=== PATIENT | female | born 1960 | race Caucasian/White ===

== ENCOUNTER → 2017-03-22 | Outpatient (CLI) | payer MEDICAID ==
--- NOTE | 2017-03-22 17:05 | WOMENS IMAGING REPORT ---
EXAM DESCRIPTION: BILAT SCREENING MAMMO W/CAD COMPLETED DATE/TIME: 03/22/2017 11:29 am REASON FOR STUDY: ROUTINE SCREENING; Z12.31 Z12.31 ENCNTR SCREEN MAMMOGRAM FOR MALIGNANT NEOPLASM O F GELY COMPARISON: No previous available, old mammograms are 30 years old TECHNIQUE: Standard craniocaudal and mediolateral oblique views of each breast recorded using digita l acquisition. LIMITATIONS: None. FINDINGS: No masses, calcifications or architectural distortion. No areas of suspicion. Read with the assistance of CAD. .[facility] - R2 Cenova Version 1.3 .[facility] - R2 Cenova Version 1.3 .[facility] - R2 Cenova Version 2.4 .[facility] - R2 Cenova Version 2.4 .[facility] - R2 Almond Roaster Version 9.2 IMPRESSION: NORMAL MAMMOGRAM. BIRADS 1. BREAST DENSITY: b. There are scattered areas of fibroglandular density. BIRAD: 1 NEGATIVE RECOMMENDATION: ROUTINE SCREENING Please consider bilateral screening tomosynthesis in February 2018 COMMENT: The patient has been notified of the results by letter per SA requirements. Additional no tification policies are in place for contacting patient with suspicious or incomplete findings. Quality ID #[id number]: The [employer] recommends an annual screening mammogram for women aged 40 years or over. This facility utilizes a reminder system to ensure that all patients receive reminder letters, and/or direct phone calls for appointments. This includes reminders for routine scr eening mammograms, diagnostic mammograms, or other Breast Imaging Interventions when appropriate. Th is patient will be placed in the appropriate reminder system. The [employer] (ACR) has developed recommendations for screening MRI of the breast s in certain patient populations, to be used in conjunction with mammography. Breast MRI surveillanc e may be appropriate for women with more than 20% lifetime risk of developing breast cancer as deter mined by genetic testing, significant family history of the disease, or history of mantle radiation f or Hodgkins Disease. ACR Practice Guidelines 2008. TECHNICAL DOCUMENTATION: FINDING NUMBER: (1) ASSESSMENT: (1) JOB ID: [id number] [employer]- All Rights Reserved
== END ==
LOC: WI 11:04
PROVIDERS: ATTEND Internal Medicine
DX: Z12.31 Encounter for screening mammogram for malignant neoplasm of breast (principal)
CPT/HCPCS: 77067

== ENCOUNTER 2017-05-26 10:35 | Inpatient (IN) | payer MEDICAID ==
--- NOTE | 2017-05-26 11:00 | RADIOLOGY REPORT (SQ) ---
EXAM DESCRIPTION: CHEST 2 VIEWS COMPLETED DATE/TIME: 05/26/2017 10:50 am REASON FOR STUDY: difficulty breathing COMPARISON: None. EXAM PARAMETERS: NUMBER OF VIEWS: two views TECHNIQUE: Digital Frontal and Lateral radiographic views of the chest acquired. RADIATION DOSE: NA LIMITATIONS: none FINDINGS: LUNGS AND PLEURA: No opacities, masses or pneumothorax. No pleural effusion. MEDIASTINUM AND HILAR STRUCTURES: No masses or contour abnormalities. HEART AND VASCULAR STRUCTURES: Heart normal size. No evidence for failure. BONES: No acute findings. HARDWARE: None in the chest. OTHER: No other significant finding. IMPRESSION: NO ACUTE RADIOGRAPHIC FINDING IN THE CHEST. TECHNICAL DOCUMENTATION: JOB ID: [id number] [employer]- All Rights Reserved Reading location - IP/workstation name: [email or web address]
[2017-05-26] MEDS ORDERED: IPRATROPIUM/ALBUTEROL 0.5-2.5 MG/3 ML AMPUL NEB ONE (11:02)
[2017-05-26] MEDS ORDERED: ONDANSETRON HCL INJ/PF 4 MG/2 ML SDV IV ONE (11:03)
[2017-05-26] MEDS ORDERED: MORPHINE SULFATE 10 MG/ML INJ IV ONE (11:03)
[2017-05-26] MEDS ORDERED: ASPIRIN 81 MG TABLET, CHEWABLE PO ONE (11:03)
[2017-05-26] MEDS ORDERED: NORMAL SALINE 1000 ML 1,000 ML IV ONE (11:04)
[2017-05-26 11:30] LABS: ABSOLUTE EOSINOPHILS # (AUTO) 0.1 10^3/uL (0.0-0.6); ABSOLUTE LYMPHOCYTES (AUTO) 2.2 10^3/uL (0.5-4.7); ABSOLUTE MONOCYTES (AUTO) 0.7 10^3/uL (0.1-1.4); ABSOLUTE NEUT (AUTO) 2.5 10^3/uL (1.7-8.2); BASOPHILS % (AUTO) 0.8 % (0-2); EOSINOPHILS % (AUTO) 0.9 % (0-6); HEMATOCRIT 45.7 % (36.0-47.0); HEMOGLOBIN 15.9 g/dL (12.0-15.5); LYMPHOCYTES % (AUTO) 40.2 % (13-45); MEAN CORPUSCULAR HEMOGLOBIN 30.7 pg (27.0-33.4); MEAN CORPUSCULAR HGB CONC 34.7 g/dL (32.0-36.0); MEAN CORPUSCULAR VOLUME 88 fl (80-97); MONOCYTES % (AUTO) 12.4 % (3-13); PLATELET COUNT 222 10^3/uL (150-450); RED BLOOD COUNT 5.17 10^6/uL (3.72-5.28); RED CELL DISTRIBUTION WIDTH 13.2 % (11.5-14.0); SEGMENTED NEUTROPHILS % (AUTO) 45.7 % (42-78); TOTAL CELLS COUNTED % (AUTO) 100 %; WHITE BLOOD COUNT 5.6 10^3/uL (4.0-10.5)
[2017-05-26 11:32] LABS: VENOUS BLOOD BASE EXCESS 1.7 mmol/L; VENOUS BLOOD PCO2 39.7 mmHg (35-63); VENOUS BLOOD PH 7.43 (7.30-7.42)
[2017-05-26 11:54] LABS: ALANINE AMINOTRANSFERASE 66 U/L (9-52); ALKALINE PHOSPHATASE 59 U/L (38-126); ANION GAP 9 (5-19); ASPARTATE AMINO TRANSFERASE 82 U/L (14-36); BILIRUBIN,DIRECT 0.4 mg/dL (0.0-0.4); BILIRUBIN,TOTAL 0.7 mg/dL (0.2-1.3); BLOOD UREA NITROGEN 5 mg/dL (7-20); CALCIUM 8.7 mg/dL (8.4-10.2); CARBON DIOXIDE 29 mmol/L (22-30); CHLORIDE 99 mmol/L (98-107); CREATINE KINASE 396 U/L (30-135); GLUCOSE 105 mg/dL (75-110); POTASSIUM 3.5 mmol/L (3.6-5.0); SODIUM 136.9 mmol/L (137-145); TOTAL PROTEIN 6.7 g/dL (6.3-8.2)
[2017-05-26 12:04] LABS: CREATINE KINASE MB 2.47 ng/mL (<4.55); NT PRO BNP 145 pg/mL (5-900)
[2017-05-26 12:05] LABS: TROPONIN I < 0.012 ng/mL
--- NOTE | 2017-05-26 13:17 | RADIOLOGY REPORT (SQ) ---
EXAM DESCRIPTION: CTA CHEST COMPLETED DATE/TIME: 05/26/2017 12:53 pm REASON FOR STUDY: sob, tachycardia, left sided cp COMPARISON: None. TECHNIQUE: CT scan of the chest performed using helical scanning technique with dynamic intravenous contrast injection. Images reviewed with lung, soft tissue and bone windows. Reconstructed coronal and sagittal MPR images reviewed. Additional 3 dimensional post-processing performed to develop Maximal Intensity Projection images (TN P). All images stored on PACS. All CT scanners at this facility use dose modulation, iterative reconstruction, and/or weight based d osing when appropriate to reduce radiation dose to as low as reasonably achievable (ALARA). [facility]: Dose Right [facility]: CareDose [facility]: Dose Right [facility]: Teradose 4D [facility]: Neurologix CONTRAST TYPE AND DOSE: contrast/concentration: Isovue 370.00 mg/ml; Total Contrast Delivered: 69.0 ml; Total Saline Delivered: 80.0 ml Contrast bolus optimized for the pulmonary arteries. Not diagnostic for the aorta. RENAL FUNCTION: BUN 5 creatinine 0.47 RADIATION DOSE: CT Rad equipment meets quality standard of care and radiation dose reduction techniq ues were employed. CTDIvol: 16.5 - 18.4 mGy. DLP: 757 mGy-cm. . LIMITATIONS: None. FINDINGS: LUNGS AND PLEURA: Scattered faintly defined ground-glass infiltrates in the right upper lo be. No pneumothorax. No effusion. There is a 5 mm ground-glass nodule adjacent to the fissure on t he left on image 39. AORTA AND GREAT VESSELS: No aneurysm. Contrast bolus not optimized for the aorta. HEART: No pericardial effusion. No significant coronary artery calcifications. PULMONARY ARTERIES: No emboli visualized in the main pulmonary arteries or the segmental branches. HILAR AND MEDIASTINAL STRUCTURES: No identified masses or abnormal nodes. HARDWARE: None in the chest. UPPER ABDOMEN: No significant findings. Limited exam. THYROID AND OTHER SOFT TISSUES: No masses. No adenopathy. BONES: Thoracic spondylosis. No acute findings. 3D MIPS: Confirm above findings. OTHER: No other significant finding. IMPRESSION: 1. There is no evidence of pulmonary emboli. 2. Scattered ground-glass infiltrates in the right upper lobe, likely chronic interstitial changes. Acute infection/inflammation cannot be excluded. 3. 5 mm ground-glass nodule in the left lung. 4. Thoracic spondylosis. COMMENT: Fleischner Criteria for Ground Glass Nodules: <6mm ground glass single nodule: No routine followup Quality ID # [id number]: Final reports with documentation of one or more dose reduction techniques (e.g., Au tomated exposure control, adjustment of the mA and/or kV according to patient size, use of iterative reconstruction technique) TECHNICAL DOCUMENTATION: JOB ID: [id number] [employer]- All Rights Reserved Reading location - IP/workstation name: [email or web address]
[2017-05-26] MEDS ORDERED: AZITHROMYCIN INJ 500 MG VIAL IV ONE (15:18)
[2017-05-26] MEDS ORDERED: CEFTRIAXONE INJ 1000 MG VIAL IV ONE (15:18)
[2017-05-26] MEDS ORDERED: ACETAMINOPHEN WITH CODEINE 120-12 MG/5 ML UDCUP PO ONE (15:19)
--- NOTE | 2017-05-26 15:30 | ER Document Report ---
ED Respiratory Problem - General Chief Complaint: Shortness Of Breath Stated Complaint: BREATHING DIFFICULTIES Time Seen by Provider: 05/26/17 10:54 Mode of Arrival: Ambulatory Information source: Patient Notes: Patient is a 57-year-old female who presents to the ER today for shortness of breath, productive cough over the past week. Patient has no history of asthma or COPD, has not been able to eat over the past day or drink any fluids she states because of nausea and vomiting. She denies any diarrhea or abdominal pain. Patient admits to chills but denies any fever that she knows of. She states that her doctor had given her an inhaler prior to this and so she was using at home without relief. TRAVEL OUTSIDE OF THE [place] IN LAST 30 DAYS: No - Related Data Allergies/Adverse Reactions: No Known Allergies Allergy (Verified 05/26/17 10:41) Past Medical History - General Information source: Patient - Social History Smoking Status: Unknown if Ever Smoked Family History: Reviewed & Not Pertinent Patient has suicidal ideation: No Patient has homicidal ideation: No Renal/ Medical History: Denies: Hx Peritoneal Dialysis Past Surgical History: Reports: Hx Tubal Ligation - Immunizations Hx Diphtheria, Pertussis, Tetanus Vaccination: Yes Review of Systems - Review of Systems Constitutional: See HPI EENT: No symptoms reported Cardiovascular: No symptoms reported Respiratory: See HPI Gastrointestinal: See HPI Genitourinary: No symptoms reported Female Genitourinary: No symptoms reported Musculoskeletal: No symptoms reported Skin: No symptoms reported Hematologic/Lymphatic: No symptoms reported Neurological/Psychological: No symptoms reported Physical Exam - Vital signs Vitals: Temp Pulse Resp BP Pulse Ox 97.8 F 132 H 20 121/89 H 94 05/26/17 10:42 05/26/17 10:42 05/26/17 10:42 05/26/17 10:42 05/26/17 10:42 - Notes Notes: PHYSICAL EXAMINATION: GENERAL: Mildly ill-appearing, but in no acute distress. HEAD: Atraumatic, normocephalic. EYES: Pupils equal round and reactive to light, extraocular movements intact, sclera anicteric, conjunctiva are normal. ENT: ear canals without erythema or foreign body, TMs pearly friedman with good bony landmarks, nares patent, oropharynx clear without exudates. Moist mucous membranes. NECK: Normal range of motion, supple without lymphadenopathy LUNGS: Cough, otherwise CTAB and equal. No wheezes rales or rhonchi. HEART: Tachycardic with regular rhythm without murmurs ABDOMEN: Soft, no tenderness. No guarding, no rebound BACK: no vertebral tenderness, normal ROM GI/: no CVA tenderness EXTREMITIES: Normal range of motion, no pitting edema. No cyanosis. NEUROLOGICAL: Cranial nerves grossly intact. Normal sensory/motor exams. PSYCH: Normal mood, normal affect. SKIN: Warm, Dry, normal turgor, no rashes or lesions noted Course - Re-evaluation Re-evalutation: 05/26/17 17:43 Chest x-ray negative for any acute pathology, white blood cell count normal today, patient did come in tachycardic at 135 bpm and would become hypoxic on room air down to 87%. Patient did much better after breathing treatment and a liter of fluids, tachycardia did resolve patient's pulse stayed around the 60s and 70s the rest of the ER visit while resting, however patient would become tachycardic when ambulated, of 210 bpm. Patient's pulse ox did keep dropping to 87% on room air, on ambulation 91% on room air. CTA was performed and negative for any pulmonary emboli but does report some groundglass opacities in the right upper lobe and a 5 mm nodule in the left lung. Patient admitted to Dr. Perera, hospitalist at this time. on oxygen, 2L satting at 95%. 05/26/17 17:47 05/26/17 17:48 - Vital Signs Vital signs: Temp Pulse Resp BP Pulse Ox 97.8 F 76 14 123/59 L 99 05/26/17 10:42 05/26/17 16:58 05/26/17 17:01 05/26/17 17:01 05/26/17 17:01 - Laboratory Result Diagrams: 05/26/17 11:12 05/26/17 11:12 Laboratory results interpreted by me: 05/26/17 05/26/17 05/26/17 11:12 11:12 11:12 Hgb 15.9 H VBG pH 7.43 H Sodium 136.9 L Potassium 3.5 L BUN 5 L Creatinine 0.47 L AST 82 H ALT 66 H Creatine Kinase 396 H Discharge - Discharge Clinical Impression: Hypoxia, Lung nodule < 6cm on CT Pneumonia Qualifiers: Pneumonia type: due to unspecified organism Laterality: right Lung location: upper lobe of lung Qualified Code(s): J18.1 - Lobar pneumonia, unspecified organism Condition: Stable Disposition: ADMITTED INPATIENT Admitting Provider: [facility] Unit Admitted: Telemetry
[2017-05-26] MEDS ORDERED: POTASSIUM CHLORIDE 10 MEQ TABLET.SA PO ONE (15:45)
[2017-05-26] MEDS ORDERED: ACETAMINOPHEN 325 MG TABLET PO PRN (16:10)
[2017-05-26] MEDS ORDERED: MAG HYDROX/AL HYDROX/SIMETH SUSP 30 ML UDCUP PO PRN (16:10)
[2017-05-26] MEDS ORDERED: ONDANSETRON HCL INJ/PF 4 MG/2 ML SDV IV PRN (16:10)
[2017-05-26] MEDS ORDERED: MAGNESIUM HYDROXIDE SUSP 30 ML UDCUP PO PRN (16:10)
--- NOTE | 2017-05-26 16:34 | PDOC H&P ---
History of Present Illness Admission Date/PCP: 05/26/17 15:36 Patient complains of: left chest wall pain History of Present Illness: THI TANNER is a 57 year old female with no significant PMH who presented to the ED with pain under her left breast. She reports coughing so vigorously yesterday that she felt/heard a pop under her left breast. As a result, when she coughs or inhales deeply, she experiences pain. A week ago, after donating plasma at [employer], she started coughing. She thought she had a cold. Gradually , she noticed difficulty taking deep breaths. Her symptoms worsened to point of feeling the pop, thus leading to this admission. She has no history of lung or heart disease. She has not travelled out of [place] recently. She does not know of any others with respiratory symptoms. She has no pets at home besides her roommate's pit bull. She is unemployed. She has a 40 pack year history of smoking. Past Medical History Medical History: None Past Surgical History Past Surgical History: Reports: Tubal Ligation Social History Information Source: Patient Lives with: Friend Smoking Status: Current Every Day Smoker - 40 pack year Frequency of Alcohol Use: Occasional Hx Recreational Drug Use: No - Advance Directive Resuscitation Status: Full Code Family History Family History: None - She has not seen or spoken to her parents in 30 years Parental Family History Reviewed: No Children Family History Reviewed: No Sibling(s) Family History Reviewed.: No Medication/Allergy Home Medications: Cyclobenzaprine HCl [Flexeril 10 mg Tablet] 10 mg PO TID 05/26/17 Ibuprofen [Motrin 800 mg Tablet] 800 mg PO TID 05/26/17 Allergies/Adverse Reactions: No Known Allergies Allergy (Verified 05/26/17 10:41) Review of Systems Constitutional: ABSENT: chills, fatigue, fever(s), night sweats Cardiovascular: ABSENT: chest pain, dyspnea on exertion, edema, orthropnea, palpitations Respiratory: PRESENT: cough. ABSENT: hemoptysis, sputum Gastrointestinal: ABSENT: abdominal pain, constipation, diarrhea, hematemesis, hematochezia, nausea, vomiting Musculoskeletal: ABSENT: joint swelling Neurological: ABSENT: abnormal gait, abnormal speech, confusion, dizziness, focal weakness, syncope Psychiatric: ABSENT: anxiety, depression, homidical ideation, suicidal ideation Physical Exam Vital Signs: Temp Pulse Resp BP Pulse Ox 97.8 F 132 H 16 91/61 L 94 05/26/17 10:42 05/26/17 10:42 05/26/17 14:01 05/26/17 14:01 05/26/17 14:01 General appearance: PRESENT: no acute distress, well-developed, well-nourished Head exam: PRESENT: atraumatic, normocephalic Eye exam: PRESENT: EOMI, PERRLA Neck exam: ABSENT: carotid bruit, JVD, lymphadenopathy, thyromegaly Respiratory exam: PRESENT: prolonged expiratory phas, unlabored, wheezes - faint end expiratory. ABSENT: accessory muscle use Cardiovascular exam: PRESENT: RRR. ABSENT: diastolic murmur, rubs, systolic murmur GI/Abdominal exam: PRESENT: normal bowel sounds, soft. ABSENT: distended, guarding, mass, organolmegaly, rebound, tenderness Extremities exam: PRESENT: full ROM. ABSENT: calf tenderness, clubbing, pedal edema Musculoskeletal exam: PRESENT: ambulatory Neurological exam: PRESENT: alert, awake, oriented to person, oriented to place , oriented to time, oriented to situation, CN II-XII grossly intact. ABSENT: motor sensory deficit Psychiatric exam: PRESENT: appropriate affect, normal mood. ABSENT: homicidal ideation, suicidal ideation Skin exam: PRESENT: dry, intact, warm. ABSENT: cyanosis, rash Results Impressions: Chest X-Ray 05/26/17 00:00 IMPRESSION: NO ACUTE RADIOGRAPHIC FINDING IN THE CHEST. Chest/Abdomen CTA 05/26/17 11:04 IMPRESSION: 1. There is no evidence of pulmonary emboli. 2. Scattered ground-glass infiltrates in the right upper lobe, likely chronic interstitial changes. Acute infection/inflammation cannot be excluded. 3. 5 mm ground-glass nodule in the left lung. 4. Thoracic spondylosis. Assessment & Plan - Diagnosis (1) Hypoxia Is this a current diagnosis for this admission?: Yes Plan: I think she may have COPD based on her history of smoking. I will treat as such : IV steroids, and inhaled bronchodilators. I'll continue oxygen for now. Hopefully, as she improves, she will not require [facility] oxygen. (2) Tobacco abuse Is this a current diagnosis for this admission?: Yes Plan: She was counseled 3 - 10 min re: smoking cessation. I will order a nicotine patch. (3) Lung nodule < 6cm on CT Is this a current diagnosis for this admission?: Yes Plan: Follow up with outpatient MD. I will refer her to brick siding applicator. (4) Pneumonia Qualifiers: Pneumonia type: due to unspecified organism Laterality: right Lung location: upper lobe of lung Qualified Code(s): J18.1 - Lobar pneumonia, unspecified organism Is this a current diagnosis for this admission?: Yes Plan: The infiltrate on the CT chest is subtle at best. Nevertheless, I will err on the side of caution an prescribe antibiotics. Doxycycline 100 mg BID x 10 days - Time Time Spent: 50 to 70 Minutes Smoking Cessation Education: 3 to 10 minutes Medications reviewed and adjusted accordingly: Yes Anticipated discharge: Home Within: within 72 hours - Inpatient Certification Based on my medical assessment, after consideration of the patient's comorbidities, presenting symptoms, or acuity I expect that the services needed warrant INPATIENT care.: Yes I certify that my determination is in accordance with my understanding of Medicare's requirements for reasonable and necessary INPATIENT services [42 CFR 412.3e].: Yes Medical Necessity: Need Close Monitoring Due to Risk of Patient Decompensation
[2017-05-26] MEDS ORDERED: METHYLPREDNISOLONE INJ 40 MG/1 ML SDV IV ONE (16:45)
[2017-05-26] MEDS: IPRATROPIUM/ALBUTEROL 0.5-2.5 MG/3 ML AMPUL NEB SCH ×3 (16:58→23:57)
[2017-05-26] MEDS ORDERED: NICOTINE 14 MG/24 HR PATCH.TD24 TD ONE (17:00)
[2017-05-26] MEDS ORDERED: ENOXAPARIN SODIUM INJ 40 MG/0.4 ML DISP.SYRIN SUBCUT ONE (17:30)
[2017-05-26] MEDS: CYCLOBENZAPRINE HCL 10 MG TABLET PO SCH (19:54)
[2017-05-26] MEDS: IBUPROFEN 800 MG TABLET PO SCH (19:54)
--- NOTE | 2017-05-26 21:06 | EKG REPORT ---
SEVERITY:- ABNORMAL ECG - SINUS TACHYCARDIA NONSPECIFIC T ABNORMALITIES, LATERAL LEADS APCs : Confirmed by: Gonzalez Rosales 26-May-2017 21:04:43
[2017-05-26] MEDS: METHYLPREDNISOLONE INJ 40 MG/1 ML SDV IV SCH (21:57)
[2017-05-27] MEDS: IPRATROPIUM/ALBUTEROL 0.5-2.5 MG/3 ML AMPUL NEB SCH ×2 (03:57→08:05)
[2017-05-27 03:59] LABS: ABSOLUTE LYMPHOCYTES (AUTO) 0.6 10^3/uL (0.5-4.7); ABSOLUTE MONOCYTES (AUTO) 0.1 10^3/uL (0.1-1.4); ABSOLUTE NEUT (AUTO) 3.1 10^3/uL (1.7-8.2); BASOPHILS % (AUTO) 0.2 % (0-2); EOSINOPHILS % (AUTO) 0.1 % (0-6); HEMATOCRIT 40.3 % (36.0-47.0); HEMOGLOBIN 13.9 g/dL (12.0-15.5); LYMPHOCYTES % (AUTO) 15.5 % (13-45); MEAN CORPUSCULAR HGB CONC 34.4 g/dL (32.0-36.0); MEAN CORPUSCULAR VOLUME 90 fl (80-97); MONOCYTES % (AUTO) 3.3 % (3-13); PLATELET COUNT 222 10^3/uL (150-450); RED BLOOD COUNT 4.48 10^6/uL (3.72-5.28); RED CELL DISTRIBUTION WIDTH 13.2 % (11.5-14.0); SEGMENTED NEUTROPHILS % (AUTO) 80.9 % (42-78); TOTAL CELLS COUNTED % (AUTO) 100 %; WHITE BLOOD COUNT 3.8 10^3/uL (4.0-10.5)
[2017-05-27 04:09] LABS: ALANINE AMINOTRANSFERASE 54 U/L (9-52); ALBUMIN 3.3 g/dL (3.5-5.0); ALKALINE PHOSPHATASE 51 U/L (38-126); ANION GAP 9 (5-19); ASPARTATE AMINO TRANSFERASE 42 U/L (14-36); BLOOD UREA NITROGEN 6 mg/dL (7-20); CALCIUM 8.9 mg/dL (8.4-10.2); CARBON DIOXIDE 30 mmol/L (22-30); CHLORIDE 103 mmol/L (98-107); GLUCOSE 170 mg/dL (75-110); POTASSIUM 3.7 mmol/L (3.6-5.0); SODIUM 142.1 mmol/L (137-145); TOTAL PROTEIN 5.5 g/dL (6.3-8.2)
[2017-05-27 04:10] LABS: BILIRUBIN,TOTAL < 0.1 mg/dL (0.2-1.3)
[2017-05-27] MEDS: METHYLPREDNISOLONE INJ 40 MG/1 ML SDV IV SCH (05:14)
[2017-05-27] MEDS: OXYCODONE-ACETAMINOPHEN 5-325 MG TABLET PO PRN ×3 (05:22→18:37)
[2017-05-27] MEDS: IBUPROFEN 800 MG TABLET PO SCH ×3 (10:11→17:59)
[2017-05-27] MEDS: CYCLOBENZAPRINE HCL 10 MG TABLET PO SCH ×3 (10:11→17:59)
[2017-05-27] MEDS: DOXYCYCLINE HYCLATE 100 MG TABLET PO SCH ×2 (10:11→21:25)
[2017-05-27] MEDS ORDERED: LORAZEPAM 1 MG TABLET PO PRN (10:12)
[2017-05-27] MEDS: NICOTINE 14 MG/24 HR PATCH.TD24 TD SCH (10:12)
[2017-05-27] MEDS: ENOXAPARIN SODIUM INJ 40 MG/0.4 ML DISP.SYRIN SUBCUT SCH (10:12)
[2017-05-27] MEDS ORDERED: LORAZEPAM 1 MG TABLET ONE (10:36)
[2017-05-27] MEDS: PREDNISONE 20 MG TABLET PO SCH (12:46)
[2017-05-27] MEDS: IPRATROPIUM BROMIDE 0.02% NEB 0.5 MG/2.5 ML AMPUL NEB SCH ×2 (14:13→20:38)
[2017-05-27] MEDS: LEVALBUTEROL HCL NEB 0.63 MG/3 ML AMPUL NEB SCH ×2 (14:16→20:39)
[2017-05-27 14:38] LABS: APPEARANCE,URINE CLEAR; BILIRUBIN,URINE NEGATIVE (NEGATIVE); COLOR,URINE YELLOW; GLUCOSE, URINE 50 mg/dL (NEGATIVE); KETONES,URINE NEGATIVE (NEGATIVE); LEUKOCYTE ESTERASE,URINE NEGATIVE (NEGATIVE); NITRITE,URINE NEGATIVE (NEGATIVE); PROTEIN,URINE NEGATIVE (NEGATIVE); URINE SPECIFIC GRAVITY 1.006; UROBILINOGEN,URINE NEGATIVE mg/dL (<2.0)
--- NOTE | 2017-05-27 15:52 | PDOC PROGRESS REPORT ---
Subjective Progress Note for:: 05/27/17 Subjective:: HTI TANNER is a 57 year old female with no significant PMH who presented to the ED with pain under her left breast. She reports coughing so vigorously yesterday that she felt/heard a pop under her left breast. As a result, when she coughs or inhales deeply, she experiences pain. A week ago, after donating plasma at [employer], she started coughing. She thought she had a cold. Gradually , she noticed difficulty taking deep breaths. Her symptoms worsened to point of feeling the pop, thus leading to this admission. She has no history of lung or heart disease. She has not travelled out of [place] recently. She does not know of any others with respiratory symptoms. She has no pets at home besides her roommate's pit bull. She is unemployed. She has a 40 pack year history of smoking. 05/27 She feels jitterly, and anxious. Reason For Visit: PNEUMONIA Physical Exam Vital Signs: Temp Pulse Resp BP Pulse Ox 98.7 F 77 16 109/56 L 96 05/27/17 12:00 05/27/17 14:13 05/27/17 14:13 05/27/17 12:00 05/27/17 14:13 Intake & Output 05/26/17 05/27/17 05/28/17 06:59 06:59 06:59 Intake Total 725 Output Total 1050 Balance -325 Weight 74.8 kg General appearance: PRESENT: no acute distress, well-developed, well-nourished Head exam: PRESENT: atraumatic, normocephalic Respiratory exam: PRESENT: clear to auscultation annabel. ABSENT: rales, rhonchi, wheezes Cardiovascular exam: PRESENT: RRR. ABSENT: diastolic murmur, rubs, systolic murmur GI/Abdominal exam: PRESENT: normal bowel sounds, soft. ABSENT: distended, guarding, mass, organolmegaly, rebound, tenderness Neurological exam: PRESENT: alert, awake, oriented to person, oriented to place , oriented to time, oriented to situation, CN II-XII grossly intact. ABSENT: motor sensory deficit Psychiatric exam: PRESENT: appropriate affect, normal mood. ABSENT: homicidal ideation, suicidal ideation Results Laboratory Results: 05/27/17 03:41 05/27/17 03:41 05/27/17 05/27/17 05/27/17 03:41 03:41 14:20 WBC 3.8 L RBC 4.48 Hgb 13.9 Hct 40.3 MCV 90 MCH 31.0 MCHC 34.4 RDW 13.2 Plt Count 222 Seg Neutrophils % 80.9 H Lymphocytes % 15.5 Monocytes % 3.3 Eosinophils % 0.1 Basophils % 0.2 Absolute Neutrophils 3.1 Absolute Lymphocytes 0.6 Absolute Monocytes 0.1 Absolute Eosinophils 0.0 Absolute Basophils 0.0 Sodium 142.1 Potassium 3.7 Chloride 103 Carbon Dioxide 30 Anion Gap 9 BUN 6 L Creatinine 0.44 L Est GFR ( Amer) > 60 Est GFR (Non-Af Amer) > 60 Glucose 170 H Calcium 8.9 Total Bilirubin < 0.1 L AST 42 H ALT 54 H Alkaline Phosphatase 51 Total Protein 5.5 L Albumin 3.3 L Urine Color YELLOW Urine Appearance CLEAR Urine pH 6.0 Ur Specific [place] 1.006 Urine Protein NEGATIVE Urine Glucose (UA) 50 H Urine Ketones NEGATIVE Urine Blood NEGATIVE Urine Nitrite NEGATIVE Ur Leukocyte Esterase NEGATIVE Urine WBC (Auto) 1 Urine RBC (Auto) 0 Impressions: Chest X-Ray 05/26/17 00:00 IMPRESSION: NO ACUTE RADIOGRAPHIC FINDING IN THE CHEST. Chest/Abdomen CTA 05/26/17 11:04 IMPRESSION: 1. There is no evidence of pulmonary emboli. 2. Scattered ground-glass infiltrates in the right upper lobe, likely chronic interstitial changes. Acute infection/inflammation cannot be excluded. 3. 5 mm ground-glass nodule in the left lung. 4. Thoracic spondylosis. Assessment & Plan - Diagnosis (1) Hypoxia Is this a current diagnosis for this admission?: Yes Plan: I think she may have COPD based on her history of smoking. Today, she is not wheezing. I'll change to oral steroids. I'll change to Xopenex and stop albuterol given her jitters. Wean oxygen. (2) Tobacco abuse Is this a current diagnosis for this admission?: Yes Plan: Continue Nicotine patch (3) Lung nodule < 6cm on CT Is this a current diagnosis for this admission?: Yes Plan: Follow up with outpatient MD. I will refer her to biomedical scientist. (4) Pneumonia Qualifiers: Pneumonia type: due to unspecified organism Laterality: right Lung location: upper lobe of lung Qualified Code(s): J18.1 - Lobar pneumonia, unspecified organism Is this a current diagnosis for this admission?: Yes Plan: The infiltrate on the CT chest is subtle at best. Doxycycline 100 mg BID day# 2 of 10 days - Time Time Spent with patient: 15-24 minutes Medications reviewed and adjusted accordingly: Yes Anticipated discharge: Home Within: within 72 hours - Inpatient Certification Based on my medical assessment, after consideration of the patient's comorbidities, presenting symptoms, or acuity I expect that the services needed warrant INPATIENT care.: Yes I certify that my determination is in accordance with my understanding of Medicare's requirements for reasonable and necessary INPATIENT services [42 CFR 412.3e].: Yes Medical Necessity: Need Close Monitoring Due to Risk of Patient Decompensation
[2017-05-28] MEDS: LEVALBUTEROL HCL NEB 0.63 MG/3 ML AMPUL NEB SCH ×4 (02:23→20:33)
[2017-05-28] MEDS: IPRATROPIUM BROMIDE 0.02% NEB 0.5 MG/2.5 ML AMPUL NEB SCH ×4 (02:23→20:33)
[2017-05-28] MEDS: DOXYCYCLINE HYCLATE 100 MG TABLET PO SCH ×2 (10:09→22:27)
[2017-05-28] MEDS: OXYCODONE-ACETAMINOPHEN 5-325 MG TABLET PO PRN ×3 (10:09→22:27)
[2017-05-28] MEDS: IBUPROFEN 800 MG TABLET PO SCH ×3 (10:10→18:04)
[2017-05-28] MEDS: CYCLOBENZAPRINE HCL 10 MG TABLET PO SCH ×3 (10:10→18:03)
[2017-05-28] MEDS: ENOXAPARIN SODIUM INJ 40 MG/0.4 ML DISP.SYRIN SUBCUT SCH (10:11)
[2017-05-28] MEDS: NICOTINE 14 MG/24 HR PATCH.TD24 TD SCH (10:11)
[2017-05-28] MEDS: PREDNISONE 20 MG TABLET PO SCH (10:15)
--- NOTE | 2017-05-28 16:04 | PDOC PROGRESS REPORT ---
Subjective Progress Note for:: 05/28/17 Subjective:: THI TANNER is a 57 year old female with no significant PMH who presented to the ED with pain under her left breast. She reports coughing so vigorously yesterday that she felt/heard a pop under her left breast. As a result, when she coughs or inhales deeply, she experiences pain. A week ago, after donating plasma at [facility] [employer] she started coughing. She thought she had a cold. Gradually , she noticed difficulty taking deep breaths. Her symptoms worsened to point of feeling the pop, thus leading to this admission. She has no history of lung or heart disease. She has not travelled out of [place] recently. She does not know of any others with respiratory symptoms. She has no pets at home besides her roommate's pit bull. She is unemployed. She has a 40 pack year history of smoking. 05/27 She feels jittery, and anxious. 05/28 She feels less jittery today. She feels constipated. Likely discharge in a.m. if off oxygen. Reason For Visit: PNEUMONIA Physical Exam Vital Signs: Temp Pulse Resp BP Pulse Ox 97.8 F 86 16 135/58 H 94 05/28/17 12:00 05/28/17 14:14 05/28/17 14:14 05/28/17 12:00 05/28/17 15:23 Intake & Output 05/27/17 05/28/17 05/29/17 06:59 06:59 06:59 Intake Total 725 1697 Output Total 1050 Balance -325 1697 Weight 74.8 kg 75.2 kg General appearance: PRESENT: no acute distress, well-developed, well-nourished Head exam: PRESENT: atraumatic, normocephalic Eye exam: PRESENT: EOMI, PERRLA Respiratory exam: PRESENT: clear to auscultation annabel. ABSENT: rales, rhonchi, wheezes Cardiovascular exam: PRESENT: RRR. ABSENT: diastolic murmur, rubs, systolic murmur GI/Abdominal exam: PRESENT: normal bowel sounds, soft. ABSENT: distended, guarding, mass, organolmegaly, rebound, tenderness Neurological exam: PRESENT: alert, awake, oriented to person, oriented to place , oriented to time, oriented to situation, CN II-XII grossly intact. ABSENT: motor sensory deficit Psychiatric exam: PRESENT: appropriate affect, normal mood. ABSENT: homicidal ideation, suicidal ideation Results Laboratory Results: 05/27/17 03:41 05/27/17 03:41 Impressions: Chest X-Ray 05/26/17 00:00 IMPRESSION: NO ACUTE RADIOGRAPHIC FINDING IN THE CHEST. Chest/Abdomen CTA 05/26/17 11:04 IMPRESSION: 1. There is no evidence of pulmonary emboli. 2. Scattered ground-glass infiltrates in the right upper lobe, likely chronic interstitial changes. Acute infection/inflammation cannot be excluded. 3. 5 mm ground-glass nodule in the left lung. 4. Thoracic spondylosis. Assessment & Plan - Diagnosis (1) Hypoxia Is this a current diagnosis for this admission?: Yes Plan: I think she may have COPD based on her history of smoking. Today, she is not wheezing. She is on oral steroids and Xopenex. Wean oxygen. (2) Tobacco abuse Is this a current diagnosis for this admission?: Yes Plan: Continue Nicotine patch. She says that she will stop smoking. (3) Lung nodule < 6cm on CT Is this a current diagnosis for this admission?: Yes Plan: Follow up with outpatient MD. I have left a nursing communication to make referral to Dr Jett at discharge. (4) Pneumonia Qualifiers: Pneumonia type: due to unspecified organism Laterality: right Lung location: upper lobe of lung Qualified Code(s): J18.1 - Lobar pneumonia, unspecified organism Is this a current diagnosis for this admission?: Yes Plan: The infiltrate on the CT chest is subtle at best. Doxycycline 100 mg BID day# 3 of 10 days - Time Time Spent with patient: 15-24 minutes Anticipated discharge: Home Within: within 24 hours - Inpatient Certification Based on my medical assessment, after consideration of the patient's comorbidities, presenting symptoms, or acuity I expect that the services needed warrant INPATIENT care.: Yes I certify that my determination is in accordance with my understanding of Medicare's requirements for reasonable and necessary INPATIENT services [42 CFR 412.3e].: Yes Medical Necessity: Need Close Monitoring Due to Risk of Patient Decompensation
[2017-05-28] MEDS ORDERED: MAGNESIUM CITRATE 296 ML BOTTLE PO ONE (16:15)
[2017-05-28] MEDS: BENZONATATE 100 MG CAPSULE PO PRN (16:56)
[2017-05-28] MEDS ORDERED: LIDOCAINE 5% (700 MG) TRANSDERMAL ADH..PATCH TP ONE (17:00)
[2017-05-28] MEDS: ZOLPIDEM TARTRATE 5 MG TABLET PO PRN (23:27)
[2017-05-29] MEDS: LEVALBUTEROL HCL NEB 0.63 MG/3 ML AMPUL NEB SCH ×4 (02:25→19:46)
[2017-05-29] MEDS: IPRATROPIUM BROMIDE 0.02% NEB 0.5 MG/2.5 ML AMPUL NEB SCH ×4 (02:25→19:46)
[2017-05-29] MEDS: IBUPROFEN 800 MG TABLET PO SCH ×3 (09:48→18:04)
[2017-05-29] MEDS: ENOXAPARIN SODIUM INJ 40 MG/0.4 ML DISP.SYRIN SUBCUT SCH (09:49)
[2017-05-29] MEDS: CYCLOBENZAPRINE HCL 10 MG TABLET PO SCH ×3 (09:50→18:04)
[2017-05-29] MEDS: DOXYCYCLINE HYCLATE 100 MG TABLET PO SCH ×2 (09:51→22:00)
[2017-05-29] MEDS: NICOTINE 14 MG/24 HR PATCH.TD24 TD SCH (09:51)
[2017-05-29] MEDS: LIDOCAINE 5% (700 MG) TRANSDERMAL ADH..PATCH TP SCH (09:51)
[2017-05-29] MEDS: PREDNISONE 20 MG TABLET PO SCH (11:41)
[2017-05-29] MEDS: OXYCODONE-ACETAMINOPHEN 5-325 MG TABLET PO PRN (15:19)
--- NOTE | 2017-05-29 18:02 | PDOC CONSULTATION ---
Consultation Consult Date: 05/29/17 Attending physician:: LISSETTE PYLE Consult reason:: dysphagia History of Present Illness Admission Date/PCP: 05/26/17 15:36 History of Present Illness: I am asked to see this patient by Dr Pedersen patient was admitted for left sided chest pain had CT scan showing ground glass infiltrate patient has been having symptoms of dysphagia solid> liquids patient denies any nausea or vomiting denies any melena Hgb is stable there are no previous episodes patient does not think that she has lost any weight denies any seasonal allergies Past Surgical History Past Surgical History: Reports: Tubal Ligation Social History Lives with: Friend Smoking Status: Current Every Day Smoker Cigarettes Packs Per Day: 1 Last Time Smoked: one week ago Frequency of Alcohol Use: Occasional Hx Recreational Drug Use: No - Advance Directive Resuscitation Status: Full Code Family History Family History: Reviewed & Not Pertinent Parental Family History Reviewed: Yes Children Family History Reviewed: Unknown Sibling(s) Family History Reviewed.: Unknown Medication/Allergy Home Medications: Cyclobenzaprine HCl [Flexeril 10 mg Tablet] 10 mg PO TID 05/26/17 Ibuprofen [Motrin 800 mg Tablet] 800 mg PO TID 05/26/17 Allergies/Adverse Reactions: No Known Allergies Allergy (Verified 05/26/17 10:41) Review of Systems Constitutional: ABSENT: fever(s), headache(s), night sweats, weakness Eyes: ABSENT: visual disturbances Ears: ABSENT: hearing changes Nose, Mouth, and Throat: ABSENT: mouth pain, sore throat Cardiovascular: ABSENT: edema, orthropnea Respiratory: PRESENT: cough. ABSENT: hemoptysis Gastrointestinal: PRESENT: dysphagia. ABSENT: hematemesis, hematochezia, melena , nausea, vomiting Genitourinary: ABSENT: dysuria, hematuria Musculoskeletal: ABSENT: deformity, joint swelling Integumentary: ABSENT: pruritus Neurological: ABSENT: syncope, tingling, tremor(s), vertigo Endocrine: ABSENT: polydipsia, polyphagia, polyuria Hematologic/Lymphatic: ABSENT: easy bruising Physical Exam Vital Signs: Temp Pulse Resp BP Pulse Ox 98.3 F 81 20 99/52 L 95 05/29/17 12:00 05/29/17 13:27 05/29/17 13:27 05/29/17 12:00 05/29/17 13:27 Intake & Output 0405/29/17 05/30/17 06:59 06:59 06:59 Intake Total 1693 4777 559 Balance 1697 3787 559 Weight 75.2 kg 76.3 kg General appearance: PRESENT: no acute distress, well-developed, well-nourished Head exam: PRESENT: atraumatic, normocephalic Eye exam: PRESENT: EOMI, PERRLA. ABSENT: scleral icterus Mouth exam: PRESENT: moist, neck supple Throat exam: ABSENT: tonsillar exudate, tonsillogmegaly Neck exam: ABSENT: meningismus, tenderness, thyromegaly Respiratory exam: PRESENT: symmetrical, unlabored. ABSENT: tachypnea, wheezes Cardiovascular exam: PRESENT: RRR, +S1, +S2 GI/Abdominal exam: PRESENT: soft. ABSENT: rebound, rigid, tenderness Extremities exam: ABSENT: joint swelling Musculoskeletal exam: PRESENT: full ROM Neurological exam: PRESENT: alert, awake, oriented to time, oriented to situation, CN II-XII grossly intact Psychiatric exam: PRESENT: appropriate affect Focused psych exam: ABSENT: restlessness Skin exam: ABSENT: mottled, urticaria, vesicles Results Laboratory Results: 05/27/17 03:41 05/27/17 03:41 Impressions: Chest X-Ray 05/26/17 00:00 IMPRESSION: NO ACUTE RADIOGRAPHIC FINDING IN THE CHEST. Chest/Abdomen CTA 05/26/17 11:04 IMPRESSION: 1. There is no evidence of pulmonary emboli. 2. Scattered ground-glass infiltrates in the right upper lobe, likely chronic interstitial changes. Acute infection/inflammation cannot be excluded. 3. 5 mm ground-glass nodule in the left lung. 4. Thoracic spondylosis. Assessment & Plan - Diagnosis (1) Dysphagia Plan: ? possible esophageal stricture, vs eosinophilic esophagitis ? pill induced esophagitis will need EGD Risks, benefits and alternatives are discussed with the patient in detail further recommendations to follow - Time Time Spent: 50 to 70 Minutes
[2017-05-29] MEDS ORDERED: GLUCAGON,HUMAN RECOMB 1 MG INJ SUBCUT PRN (18:37)
[2017-05-29] MEDS ORDERED: DEXTROSE 40% GEL 15 GM TUBE PO PRN ×2 (18:37)
[2017-05-29] MEDS ORDERED: DEXTROSE 50%-WATER 25 GM/50 ML DISP.SYRIN IV PRN ×2 (18:37)
--- NOTE | 2017-05-29 18:43 | PDOC PROGRESS REPORT ---
Subjective Progress Note for:: 05/29/17 Subjective:: THI TANNER is a 57 year old female with no significant PMH who presented to the ED with pain under her left breast. She reports coughing so vigorously yesterday that she felt/heard a pop under her left breast. As a result, when she coughs or inhales deeply, she experiences pain. A week ago, after donating plasma at [facility], she started coughing. She thought she had a cold. Gradually , she noticed difficulty taking deep breaths. Patient was diagnosed with pneumonia and has been treated with Levaquin IV Upon questioning patient admits to severe dysphagia for solids several weeks She usually takes tiny bites or just drinks liquids She states that she has had a mass in her throat but never had any tests done Reason For Visit: PNEUMONIA Physical Exam Vital Signs: Temp Pulse Resp BP Pulse Ox 98.3 F 81 20 99/52 L 95 05/29/17 12:00 05/29/17 13:27 05/29/17 13:27 05/29/17 12:00 05/29/17 13:27 Intake & Output 05/28/17 05/29/17 05/30/17 00:59 00:59 00:59 Intake Total 1315 3892 1081 Output Total 350 Balance 965 3892 1081 Weight 74.8 kg 75.2 kg 76.3 kg General appearance: PRESENT: no acute distress, well-developed Head exam: PRESENT: atraumatic, normocephalic Eye exam: PRESENT: conjunctiva pink, EOMI, PERRLA. ABSENT: scleral icterus Neck exam: ABSENT: carotid bruit, JVD, lymphadenopathy, thyromegaly Respiratory exam: PRESENT: clear to auscultation annabel. ABSENT: rales, rhonchi, wheezes Cardiovascular exam: PRESENT: RRR. ABSENT: diastolic murmur, rubs, systolic murmur Pulses: PRESENT: normal dorsalis pedis pul GI/Abdominal exam: PRESENT: normal bowel sounds, soft. ABSENT: distended, guarding, mass, organolmegaly, rebound, tenderness Neurological exam: PRESENT: alert, awake, oriented to person, oriented to place , oriented to time, oriented to situation, CN II-XII grossly intact. ABSENT: motor sensory deficit Results Laboratory Results: 05/27/17 03:41 05/27/17 03:41 Impressions: Chest X-Ray 05/26/17 00:00 IMPRESSION: NO ACUTE RADIOGRAPHIC FINDING IN THE CHEST. Chest/Abdomen CTA 05/26/17 11:04 IMPRESSION: 1. There is no evidence of pulmonary emboli. 2. Scattered ground-glass infiltrates in the right upper lobe, likely chronic interstitial changes. Acute infection/inflammation cannot be excluded. 3. 5 mm ground-glass nodule in the left lung. 4. Thoracic spondylosis. Assessment & Plan - Diagnosis (1) Dysphagia Is this a current diagnosis for this admission?: Yes Plan: We discussed the case with Dr. Agustin will perform endoscopy tomorrow Patient will be scheduled for CT soft tissue of the neck tonight patient to be continued on her prior antibiotic regimen (2) Lung nodule < 6cm on CT Is this a current diagnosis for this admission?: Yes (3) Pneumonia Qualifiers: Pneumonia type: due to unspecified organism Laterality: right Lung location: upper lobe of lung Qualified Code(s): J18.1 - Lobar pneumonia, unspecified organism Is this a current diagnosis for this admission?: Yes (4) Tobacco abuse Is this a current diagnosis for this admission?: Yes - Time Time Spent with patient: Patient likely may be discharged within 24 hours if clinically well after endoscopy Time Spent with patient: 25-34 minutes
[2017-05-29] MEDS ORDERED: LACTULOSE SYRUP 20 GM/30 ML UDCUP PO ONE (20:20)
--- NOTE | 2017-05-29 21:10 | RADIOLOGY REPORT (SQ) ---
EXAM DESCRIPTION: CT SOFT TISSUE NECK WITH COMPLETED DATE/TIME: 05/29/2017 8:56 pm REASON FOR STUDY: " mass throat dysphagia" COMPARISON: None. TECHNIQUE: Post IV contrasted scanning from skull base through lung apices with review of bone, soft tissue and lung windows. Reconstructed coronal and sagittal MPR images reviewed. All images stored on PACS. All CT scanners at this facility use dose modulation, iterative reconstruction, and/or weight based d osing when appropriate to reduce radiation dose to as low as reasonably achievable (ALARA). [facility]: Dose Right [facility]: CareDose [facility]: Dose Right [facility]: Teradose 4D [facility]: Elemental [employer] CONTRAST TYPE AND DOSE: contrast/concentration: Isovue 370.00 mg/ml; Total Contrast Delivered: 75.0 ml; Total Saline Delivered: 42.0 ml RENAL FUNCTION: Creatinine 0.4 RADIATION DOSE: CT Rad equipment meets quality standard of care and radiation dose reduction techniq ues were employed. CTDIvol: 12.5 mGy. DLP: 404 mGy-cm. . LIMITATIONS: None. FINDINGS: SKULL BASE: Intact. MAJOR SALIVARY GLANDS: No solid or cystic masses. No inflammatory changes. LYMPHADENOPATHY: No adenopathy. MUCOSAL MASSES OR ASYMMETRY: No mucosal masses or asymmetry. LARYNX/CORDS: No abnormal findings. VASCULAR STRUCTURES: The major vessels are patent. LUNG APICES: See recent full CT chest from 05/26/2017. New ground-glass infiltrates are present in the left upper lobe. BONES: Cervical spondylosis. THYROID: Normal size. No masses. PARANASAL SINUSES: Clear. OTHER: No other significant finding. IMPRESSION: 1. No neck mass or adenopathy detected. 2. New left upper lobe nonspecific ground-gla ss pulmonary infiltrates. TECHNICAL DOCUMENTATION: JOB ID: [id number] Quality ID # [id number]: Final reports with documentation of one or more dose reduction techniques (e.g., Au tomated exposure control, adjustment of the mA and/or kV according to patient size, use of iterative reconstruction technique) 2010 [employer]- All Rights Reserved Reading location - IP/workstation name: [email or web address]
[2017-05-29] MEDS: ZOLPIDEM TARTRATE 5 MG TABLET PO PRN (22:00)
[2017-05-30] MEDS: IPRATROPIUM BROMIDE 0.02% NEB 0.5 MG/2.5 ML AMPUL NEB SCH ×4 (01:16→20:00)
[2017-05-30] MEDS: LEVALBUTEROL HCL NEB 0.63 MG/3 ML AMPUL NEB SCH ×4 (01:16→20:02)
[2017-05-30] MEDS ORDERED: DIPHENHYDRAMINE HCL 50 MG/ML VIAL ONE (10:16)
[2017-05-30] MEDS ORDERED: NALOXONE HCL INJ/PF 0.4 MG/1 ML SDV ONE (10:17)
[2017-05-30] MEDS ORDERED: FENTANYL CITRATE INJ/PF 100 MCG/2 ML AMPUL ONE (10:17)
[2017-05-30] MEDS ORDERED: MIDAZOLAM 2 MG/2 ML INJ ONE (10:17)
[2017-05-30] MEDS ORDERED: ONDANSETRON HCL INJ/PF 4 MG/2 ML SDV ONE (10:17)
[2017-05-30] MEDS ORDERED: GLUCAGON,HUMAN RECOMB 1 MG INJ ONE (10:18)
[2017-05-30] MEDS ORDERED: EPINEPHRINE INJ 1 MG/10 ML DISP.SYRIN ONE (10:18)
[2017-05-30] MEDS ORDERED: FLUMAZENIL INJ 0.5 MG/5 ML VIAL ONE (10:18)
[2017-05-30] MEDS: MIDAZOLAM 2 MG/2 ML INJ ONE ×2 (10:30→10:38)
--- NOTE | 2017-05-30 10:43 | Operative Report ---
Operative Report DATE OF SURGERY: 05/30/17 Operative Report: The risks benefits and alternatives of the procedure explained to the patient in detail and informed consent is obtained.A GIF Olympus video scope was inserted into the patient's mouth and hypopharynx ,the esophagus is identified intubated and insufflated, the scope was then advanced through the esophagus stomach and duodenum, retroflexion maneuver is done, the esophagus stomach and first and second portions of the duodenum examined PREOPERATIVE DIAGNOSIS: Dysphagia, negative CT scan POSTOPERATIVE DIAGNOSIS: Possible Deya esophagitis status post brushing for confirmation treat with nystatin swish and swallow if positive. Possible Nguyen's esophagus suggestive of gastroesophageal reflux disease start PPI if positive. Gastritis status post biopsy rule out Helicobacter pylori and treat if positive OPERATION: EGD with biopsy and brushing SURGEON: LISSETTE PYLE ANESTHESIA: LMAC - 2 mg of Versed, 50 mcg of fentanyl. Conscious sedation monitoring time 30 minutes. TISSUE REMOVED OR ALTERED: As noted above. COMPLICATIONS: None. ESTIMATED BLOOD LOSS: None. INTRAOPERATIVE FINDINGS: None. PROCEDURE: Patient tolerated the procedure well. No immediate postprocedure complications are noted. Patient sent back to her room in good condition. We will wait on biopsies. Resume regular diet. Resume previous activity level. We will wait on biopsies and noted an postprocedure diagnosis
[2017-05-30] MEDS: ENOXAPARIN SODIUM INJ 40 MG/0.4 ML DISP.SYRIN SUBCUT SCH (11:49)
[2017-05-30] MEDS: CYCLOBENZAPRINE HCL 10 MG TABLET PO SCH ×3 (11:50→21:01)
[2017-05-30] MEDS: IBUPROFEN 800 MG TABLET PO SCH ×3 (11:50→21:00)
[2017-05-30] MEDS: DOXYCYCLINE HYCLATE 100 MG TABLET PO SCH (11:51)
[2017-05-30] MEDS: NICOTINE 14 MG/24 HR PATCH.TD24 TD SCH (11:51)
[2017-05-30] MEDS: PREDNISONE 20 MG TABLET PO SCH (11:51)
[2017-05-30] MEDS: LIDOCAINE 5% (700 MG) TRANSDERMAL ADH..PATCH TP SCH (11:54)
[2017-05-30] MEDS ORDERED: LANSOPRAZOLE 30 MG TAB.RAP.DR PO ONE (14:00)
[2017-05-30] MEDS: FLUCONAZOLE 100 MG TABLET PO SCH (16:17)
--- NOTE | 2017-05-30 18:11 | PDOC PROGRESS REPORT ---
Subjective Progress Note for:: 05/30/17 Subjective:: Had CT neck last night and EGD this AM. States that dysphagia is better. Has been able to drink and eat without problem the last 2 days. States that her breathing is much better. Denies SOB, cough. Able to ambulate without supplemental O2 use. No other complaints. Reason For Visit: PNEUMONIA Physical Exam Vital Signs: Temp Pulse Resp BP Pulse Ox 98.3 F 97 16 98/52 L 96 05/30/17 16:00 05/30/17 16:00 05/30/17 16:00 05/30/17 16:00 05/30/17 16:00 Intake & Output 05/29/17 05/30/17 05/31/17 06:59 06:59 06:59 Intake Total 3787 1198 700 Balance 3787 1198 700 Weight 76.3 kg 77.2 kg General appearance: PRESENT: no acute distress, cooperative, well-developed, well-nourished Mouth exam: PRESENT: moist Respiratory exam: PRESENT: unlabored. ABSENT: crackles, tachypnea, wheezes Cardiovascular exam: PRESENT: +S1, +S2. ABSENT: tachycardia GI/Abdominal exam: PRESENT: soft. ABSENT: tenderness Neurological exam: PRESENT: alert, awake, CN II-XII grossly intact Psychiatric exam: PRESENT: appropriate affect Skin exam: PRESENT: dry, intact, warm Results Laboratory Results: 05/27/17 03:41 05/27/17 03:41 Impressions: Chest X-Ray 05/26/17 00:00 IMPRESSION: NO ACUTE RADIOGRAPHIC FINDING IN THE CHEST. Chest/Abdomen CTA 05/26/17 11:04 IMPRESSION: 1. There is no evidence of pulmonary emboli. 2. Scattered ground-glass infiltrates in the right upper lobe, likely chronic interstitial changes. Acute infection/inflammation cannot be excluded. 3. 5 mm ground-glass nodule in the left lung. 4. Thoracic spondylosis. Soft Tissue Neck CT 05/29/17 18:36 IMPRESSION: 1. No neck mass or adenopathy detected. 2. New left upper lobe nonspecific ground-glass pulmonary infiltrates. Assessment & Plan - Diagnosis (1) Dysphagia Qualifiers: Dysphagia type: unspecified Qualified Code(s): R13.10 - Dysphagia, unspecified Is this a current diagnosis for this admission?: Yes Plan: When discussed with patient today, described odynophagia associated with pills. States that she has no dysphagia symptoms for last 48 hours. - Seen by GI, who performed EGD today - Per report: Possible Deya esophagitis status post brushing for confirmation treat with nystatin swish and swallow if positive. Possible Nguyen's esophagus suggestive of gastroesophageal reflux disease start PPI if positive. Gastritis status post biopsy rule out Helicobacter pylori and treat if positive - Follow up on biopsies. Given findings: 1. Started Fluconazole 200mg * 14 days PO 2. Started PPI daily 3. If H pylori, would treat with appropriate triple therapy (2) Hypoxia Is this a current diagnosis for this admission?: Yes (3) Pneumonia Qualifiers: Pneumonia type: due to unspecified organism Laterality: right Lung location: upper lobe of lung Qualified Code(s): J18.1 - Lobar pneumonia, unspecified organism Is this a current diagnosis for this admission?: Yes Plan: Reviewed imaging and no clear evidence of PNA on CTA chest from 05/26. Pt is afebrile, HDS, and satting well on RA. - Will d/c abx (4) Tobacco abuse Is this a current diagnosis for this admission?: Yes Plan: Discussed with patient - Time Time Spent with patient: 15-24 minutes Anticipated discharge: Home Within: within 24 hours
[2017-05-30] MEDS: ZOLPIDEM TARTRATE 5 MG TABLET PO PRN (23:13)
[2017-05-31] MEDS: LEVALBUTEROL HCL NEB 0.63 MG/3 ML AMPUL NEB SCH ×4 (02:11→19:48)
[2017-05-31] MEDS: IPRATROPIUM BROMIDE 0.02% NEB 0.5 MG/2.5 ML AMPUL NEB SCH ×4 (02:11→19:48)
[2017-05-31] MEDS: LANSOPRAZOLE 30 MG TAB.RAP.DR PO SCH (06:06)
--- NOTE | 2017-05-31 09:41 | PDOC PROGRESS REPORT ---
Subjective Progress Note for:: 05/31/17 Subjective:: patient had EGD done yesterday biopsies are still pending but ILEANA stain is positive patient should be started on Nystatin swish and swallow has been improving no significant overnight events able to take oral feeds Reason For Visit: PNEUMONIA Physical Exam Vital Signs: Temp Pulse Resp BP Pulse Ox 98.3 F 84 16 125/70 93 05/31/17 08:23 05/31/17 08:23 05/31/17 08:23 05/31/17 08:23 05/31/17 08:23 Intake & Output 05/30/17 05/31/17 06/01/17 06:59 06:59 06:59 Intake Total 1198 927 Output Total 6 Balance 1198 921 Weight 77.2 kg 77.2 kg General appearance: PRESENT: no acute distress, well-developed, well-nourished Head exam: PRESENT: atraumatic, normocephalic Eye exam: PRESENT: EOMI, PERRLA. ABSENT: scleral icterus Mouth exam: PRESENT: moist, neck supple Throat exam: ABSENT: tonsillar exudate, tonsillogmegaly Neck exam: ABSENT: meningismus, tenderness, thyromegaly Respiratory exam: PRESENT: symmetrical, unlabored. ABSENT: tachypnea, wheezes Cardiovascular exam: PRESENT: RRR, +S1, +S2 GI/Abdominal exam: PRESENT: soft. ABSENT: rebound, rigid, tenderness Extremities exam: ABSENT: joint swelling Neurological exam: PRESENT: alert, awake, oriented to time, oriented to situation, CN II-XII grossly intact Focused psych exam: ABSENT: restlessness Skin exam: PRESENT: normal color. ABSENT: mottled, pallor, urticaria, vesicles Results Laboratory Results: 05/27/17 03:41 05/27/17 03:41 Impressions: Chest X-Ray 05/26/17 00:00 IMPRESSION: NO ACUTE RADIOGRAPHIC FINDING IN THE CHEST. Chest/Abdomen CTA 05/26/17 11:04 IMPRESSION: 1. There is no evidence of pulmonary emboli. 2. Scattered ground-glass infiltrates in the right upper lobe, likely chronic interstitial changes. Acute infection/inflammation cannot be excluded. 3. 5 mm ground-glass nodule in the left lung. 4. Thoracic spondylosis. Soft Tissue Neck CT 05/29/17 18:36 IMPRESSION: 1. No neck mass or adenopathy detected. 2. New left upper lobe nonspecific ground-glass pulmonary infiltrates. Assessment & Plan - Diagnosis (1) Dysphagia Qualifiers: Dysphagia type: unspecified Qualified Code(s): R13.10 - Dysphagia, unspecified Is this a current diagnosis for this admission?: Yes Plan: due to Deya esophagitis Nystatin as noted will wait on rest of biopsies for any other treatment needed can follow up as outpatient - Time Time Spent with patient: 15-24 minutes
[2017-05-31] MEDS: CYCLOBENZAPRINE HCL 10 MG TABLET PO SCH ×3 (10:37→17:37)
[2017-05-31] MEDS: IBUPROFEN 800 MG TABLET PO SCH ×3 (10:37→17:38)
[2017-05-31] MEDS: PREDNISONE 20 MG TABLET PO SCH (10:37)
[2017-05-31] MEDS: LIDOCAINE 5% (700 MG) TRANSDERMAL ADH..PATCH TP SCH (10:37)
[2017-05-31] MEDS: NICOTINE 14 MG/24 HR PATCH.TD24 TD SCH (10:37)
[2017-05-31] MEDS: ENOXAPARIN SODIUM INJ 40 MG/0.4 ML DISP.SYRIN SUBCUT SCH (10:37)
[2017-05-31] MEDS: BENZONATATE 100 MG CAPSULE PO PRN (11:56)
[2017-05-31] MEDS: FLUCONAZOLE 100 MG TABLET PO SCH (15:31)
--- NOTE | 2017-05-31 19:47 | PDOC PROGRESS REPORT ---
Subjective Progress Note for:: 05/31/17 Subjective:: [place] slowly improving. Still has trouble swallowing, but improving. No chest pain or shortness of breath, fever or chills, no nausea or vomiting. Reason For Visit: PNEUMONIA Physical Exam Vital Signs: Temp Pulse Resp BP Pulse Ox 98.2 F 80 18 123/64 96 05/31/17 16:00 05/31/17 16:00 05/31/17 16:00 05/31/17 16:00 05/31/17 16:00 Intake & Output 05/30/17 05/31/17 06/01/17 06:59 06:59 06:59 Intake Total 4645 200 5349 Output Total 6 Balance 2557 169 5601 Weight 77.2 kg 77.2 kg GEN: NAD, well-developed, well-nourished CV: RRR, NL S1S2 LUNGS: CTA bilaterally ABDOMEN Soft, mild epigastric discomfort, no guarding, +BS EXTERMITIES: No e/c/c NEURO: Alert, oriented 3, nonfocal Results Laboratory Results: 05/27/17 03:41 05/27/17 03:41 Impressions: Chest X-Ray 05/26/17 00:00 IMPRESSION: NO ACUTE RADIOGRAPHIC FINDING IN THE CHEST. Chest/Abdomen CTA 05/26/17 11:04 IMPRESSION: 1. There is no evidence of pulmonary emboli. 2. Scattered ground-glass infiltrates in the right upper lobe, likely chronic interstitial changes. Acute infection/inflammation cannot be excluded. 3. 5 mm ground-glass nodule in the left lung. 4. Thoracic spondylosis. Soft Tissue Neck CT 05/29/17 18:36 IMPRESSION: 1. No neck mass or adenopathy detected. 2. New left upper lobe nonspecific ground-glass pulmonary infiltrates. Assessment & Plan - Plan Summary Plan Summary: (1) Dysphagia Qualifiers: Dysphagia type: unspecified Qualified Code(s): R13.10 - Dysphagia, unspecified Is this a current diagnosis for this admission?: Yes Plan: -Status post EGD 05/30, GI follow-up appreciated -We will continue fluconazole, follow-up biopsy report -Possible home in a.m. pending biopsy results -Likely GI follow-up as outpatient (2) Hypoxia Is this a current diagnosis for this admission?: Yes - (3) Pneumonia Qualifiers: Pneumonia type: due to unspecified organism Laterality: right Lung location: upper lobe of lung Qualified Code(s): J18.1 - Lobar pneumonia, unspecified organism Is this a current diagnosis for this admission?: Yes Plan: No clear evidence of PNA on CTA chest from 05/26. Pt is afebrile, HDS, and satting well on RA. Antibiotics DC'd 05/30 (4) Tobacco abuse Is this a current diagnosis for this admission?: Yes Plan: Smoking cessation counseling
[2017-05-31] MEDS: ZOLPIDEM TARTRATE 5 MG TABLET PO PRN (22:29)
[2017-05-31] MEDS: OXYCODONE-ACETAMINOPHEN 5-325 MG TABLET PO PRN (22:29)
[2017-06-01] MEDS: IPRATROPIUM BROMIDE 0.02% NEB 0.5 MG/2.5 ML AMPUL NEB SCH ×3 (02:26→13:49)
[2017-06-01] MEDS: LEVALBUTEROL HCL NEB 0.63 MG/3 ML AMPUL NEB SCH ×3 (02:26→13:49)
[2017-06-01] MEDS: LANSOPRAZOLE 30 MG TAB.RAP.DR PO SCH (05:15)
[2017-06-01 06:43] LABS: ABSOLUTE LYMPHOCYTES (AUTO) 2.6 10^3/uL (0.5-4.7); ABSOLUTE MONOCYTES (AUTO) 0.8 10^3/uL (0.1-1.4); ABSOLUTE NEUT (AUTO) 6.9 10^3/uL (1.7-8.2); BASOPHILS % (AUTO) 0.2 % (0-2); EOSINOPHILS % (AUTO) 0.3 % (0-6); HEMATOCRIT 37.1 % (36.0-47.0); HEMOGLOBIN 12.4 g/dL (12.0-15.5); LYMPHOCYTES % (AUTO) 25.1 % (13-45); MEAN CORPUSCULAR HEMOGLOBIN 30.6 pg (27.0-33.4); MEAN CORPUSCULAR HGB CONC 33.5 g/dL (32.0-36.0); MEAN CORPUSCULAR VOLUME 91 fl (80-97); MONOCYTES % (AUTO) 7.9 % (3-13); PLATELET COUNT 419 10^3/uL (150-450); RED BLOOD COUNT 4.06 10^6/uL (3.72-5.28); RED CELL DISTRIBUTION WIDTH 13.7 % (11.5-14.0); SEGMENTED NEUTROPHILS % (AUTO) 66.5 % (42-78); TOTAL CELLS COUNTED % (AUTO) 100 %; WHITE BLOOD COUNT 10.3 10^3/uL (4.0-10.5)
[2017-06-01 06:56] LABS: ANION GAP 7 (5-19); BLOOD UREA NITROGEN 15 mg/dL (7-20); CALCIUM 8.2 mg/dL (8.4-10.2); CARBON DIOXIDE 30 mmol/L (22-30); CHLORIDE 106 mmol/L (98-107); GLUCOSE 96 mg/dL (75-110); POTASSIUM 3.6 mmol/L (3.6-5.0); SODIUM 142.6 mmol/L (137-145)
[2017-06-01] MEDS ORDERED: ONDANSETRON HCL INJ/PF 4 MG/2 ML SDV IV PRN (09:30)
[2017-06-01] MEDS: CYCLOBENZAPRINE HCL 10 MG TABLET PO SCH ×2 (09:57→14:05)
[2017-06-01] MEDS: IBUPROFEN 800 MG TABLET PO SCH ×2 (09:57→14:05)
[2017-06-01] MEDS: NICOTINE 14 MG/24 HR PATCH.TD24 TD SCH (09:58)
[2017-06-01] MEDS: ENOXAPARIN SODIUM INJ 40 MG/0.4 ML DISP.SYRIN SUBCUT SCH (10:05)
[2017-06-01] MEDS: PREDNISONE 20 MG TABLET PO SCH (10:06)
[2017-06-01] MEDS: LIDOCAINE 5% (700 MG) TRANSDERMAL ADH..PATCH TP SCH (10:06)
[2017-06-01] MEDS: FLUCONAZOLE 100 MG TABLET PO SCH (14:07)
[2017-06-01 14:35] VITALS: BP 123/64
[2017-06-01] MEDS ORDERED: PHARMACY COMMUNICATION ORDER MC SCH (22:00)
--- NOTE | 2017-07-14 09:10 | PDOC DISCHARGE SUMMARY ---
General - Admit/Disc Date/PCP Admission Date/Primary Care Provider: 05/26/17 15:36 Discharge Date: 06/01/17 - Additional Information Resuscitation Status: Full Code Prescriptions: Fluconazole [Diflucan 100 mg Tablet] 100 mg PO DAILY@1400 #4 tablet Lansoprazole [Prevacid 30 mg Odt Tablet] 30 mg PO Q6AM #30 tab. Prednisone [Deltasone 20 mg Tablet] 20 mg PO DAILY@1100 4 Days #4 tablet Home Medications: Cyclobenzaprine HCl [Flexeril 10 mg Tablet] 10 mg PO TID 05/26/17 Ibuprofen [Motrin 800 mg Tablet] 800 mg PO TID 05/26/17 Fluconazole [Diflucan 100 mg Tablet] 100 mg PO DAILY@1400 #4 tablet 06/01/17 Lansoprazole [Prevacid 30 mg Odt Tablet] 30 mg PO Q6AM #30 tab. 06/01/17 Nicotine [Nicoderm 14 mg/24 Hr Transdermal Patch] 1 each TD DAILY patch.td24 Prednisone [Deltasone 20 mg Tablet] 20 mg PO DAILY@1100 4 Days #4 tablet History of Present Illness History of Present Illness: Patient complains of anterior as in HPI below: "THI TANNER is a 57 year old female with no significant PMH who presented to the ED with pain under her left breast. She reports coughing so vigorously yesterday that she felt/heard a pop under her left breast. As a result, when she coughs or inhales deeply, she experiences pain. A week ago, after donating plasma at [facility], she started coughing. She thought she had a cold. Gradually, she noticed difficulty taking deep breaths. Her symptoms worsened to point of feeling the pop, thus leading to this admission. She has no history of lung or heart disease. She has not travelled out of [place] recently. She does not know of any others with respiratory symptoms. She has no pets at home besides her roommate's pit bull. She is unemployed. She has a 40 pack year history of smoking." Hospital Course Hospital Course: Patient was admitted to the hospitalist service and managed as follows: (2) Hypoxia Is this a current diagnosis for this admission?: Yes -Suspect reactive airway disease. Treated with prednisone down to 20 mg daily for 4 more days. -Doing better and being discharged in stable condition. (1) Dysphagia Qualifiers: Dysphagia type: unspecified Qualified Code(s): R13.10 - Dysphagia, unspecified Is this a current diagnosis for this admission?: Yes Plan: -Status post EGD 05/30, GI follow-up appreciated -We will continue fluconazole, follow-up biopsy report Diflucan 100 mg daily 4 more days. Follow-up with Dr. Agustin of GI (3) Pneumonia -- this was ruled out Qualifiers: Pneumonia type: due to unspecified organism Laterality: right Lung location: upper lobe of lung Qualified Code(s): J18.1 - Lobar pneumonia, unspecified organism Is this a current diagnosis for this admission?: Yes Plan: No clear evidence of PNA on CTA chest from 05/26. Pt is afebrile, HDS, and satting well on RA. Antibiotics DC'd 05/30 (4) Tobacco abuse Is this a current diagnosis for this admission?: Yes Plan: Smoking cessation counseling was done. Physical Exam Vital Signs: Temp Pulse Resp BP Pulse Ox 98.2 F 88 14 119/69 92 06/01/17 07:40 06/01/17 08:00 06/01/17 08:00 06/01/17 07:40 06/01/17 08:00 Intake & Output 05/31/17 06/01/17 06/02/17 06:59 06:59 06:59 Intake Total 927 3185 Output Total 6 Balance 921 3185 Weight 77.2 kg 77.2 kg GEN: NAD, well-developed, well-nourished CV: RRR, NL S1S2 LUNGS: CTA bilaterally ABDOMEN Soft, mild epigastric discomfort, no guarding, +BS EXTERMITIES: No e/c/c NEURO: Alert, oriented 3, nonfocal Results Laboratory Results: 06/01/17 05:59 06/01/17 05:59 06/01/17 06/01/17 05:59 05:59 WBC 10.3 RBC 4.06 Hgb 12.4 Hct 37.1 MCV 91 MCH 30.6 MCHC 33.5 RDW 13.7 Plt Count 419 Seg Neutrophils % 66.5 Lymphocytes % 25.1 Monocytes % 7.9 Eosinophils % 0.3 Basophils % 0.2 Absolute Neutrophils 6.9 Absolute Lymphocytes 2.6 Absolute Monocytes 0.8 Absolute Eosinophils 0.0 Absolute Basophils 0.0 Sodium 142.6 Potassium 3.6 Chloride 106 Carbon Dioxide 30 Anion Gap 7 BUN 15 Creatinine 0.50 L Est GFR ( Amer) > 60 Est GFR (Non-Af Amer) > 60 Glucose 96 Calcium 8.2 L Impressions: Chest X-Ray 05/26/17 00:00 IMPRESSION: NO ACUTE RADIOGRAPHIC FINDING IN THE CHEST. Chest/Abdomen CTA 05/26/17 11:04 IMPRESSION: 1. There is no evidence of pulmonary emboli. 2. Scattered ground-glass infiltrates in the right upper lobe, likely chronic interstitial changes. Acute infection/inflammation cannot be excluded. 3. 5 mm ground-glass nodule in the left lung. 4. Thoracic spondylosis. Soft Tissue Neck CT 05/29/17 18:36 IMPRESSION: 1. No neck mass or adenopathy detected. 2. New left upper lobe nonspecific ground-glass pulmonary infiltrates. Qualifiers - * PATIENT BEING DISCHARGED WITH ANY OF THE FOLLOWING DIAGNOSIS: No
== END 2017-06-01 15:10 | disposition home or self-care (01) | DRG 195 ==
LOC: ER 10:35 → EH 15:36 → 5 17:25
PROVIDERS: ADMIT Family Medicine; ATTEND Family Medicine
PROC: 0DB68ZX Excision of Stomach, Via Natural or Artificial Opening Endoscopic, Diagnostic (ICD-10-PCS; principal; 2017-05-26)
PROC: 0DD58ZX Extraction of Esophagus, Via Natural or Artificial Opening Endoscopic, Diagnostic (ICD-10-PCS; 2017-05-26)
PROC: 3E0F73Z Introduction of Anti-inflammatory into Respiratory Tract, Via Natural or Artificial Opening (ICD-10-PCS; 2017-05-26)
DX: J18.1 Lobar pneumonia, unspecified organism (principal); M47.894 Other spondylosis, thoracic region; R91.1 Solitary pulmonary nodule; R09.02 Hypoxemia; F17.210 Nicotine dependence, cigarettes, uncomplicated; R13.10 Dysphagia, unspecified
CPT/HCPCS: 36415; 43239; 70491; 71046; 71275; 80048; 80053; 81001; 82550; 82553; 82803; 83605; 83735; 83880; 84484; 85025; 87040; 87210; 88305; 88312; 93005; 93010; 94640; 96361; 96374; 96375; 99285; J0171; J0696; J1200; J1610; J1650; J2250; J2270; J2310; J2405; J2920; J3010; J3490; J7030; J7512; J7614; J7620

== ENCOUNTER 2019-01-24 15:43 | Emergency (ER) | payer OTHER ==
[2019-01-24] MEDS ORDERED: KETOROLAC TROMETHAMINE INJ/PF 30 MG/1 ML SDV IV ONE (16:45)
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
--- NOTE | 2019-01-24 17:36 | RADIOLOGY REPORT (SQ) ---
EXAM DESCRIPTION: CHEST 2 VIEWS COMPLETED DATE/TIME: 01/24/2019 5:17 pm REASON FOR STUDY: chest "lump" and pain COMPARISON: 05/26/2017 EXAM PARAMETERS: NUMBER OF VIEWS: two views TECHNIQUE: Digital Frontal and Lateral radiographic views of the chest acquired. RADIATION DOSE: NA LIMITATIONS: none FINDINGS: LUNGS AND PLEURA: No opacities, masses or pneumothorax. No pleural effusion. MEDIASTINUM AND HILAR STRUCTURES: No masses or contour abnormalities. HEART AND VASCULAR STRUCTURES: Heart normal size. No evidence for failure. BONES: No acute findings. HARDWARE: None in the chest. OTHER: No other significant finding. IMPRESSION: NO ACUTE RADIOGRAPHIC FINDING IN THE CHEST. TECHNICAL DOCUMENTATION: JOB ID: [id number] [employer]- All Rights Reserved Reading location - IP/workstation name: [email or web address]
[2019-01-24] MEDS ORDERED: KETOROLAC TROMETHAMINE INJ/PF 30 MG/1 ML SDV ONE (20:24)
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
[2019-01-24 21:03] LABS: ALBUMIN 4.3 g/dL (3.5-5.0); ALKALINE PHOSPHATASE 98 U/L (38-126); ANION GAP 9 (5-19); ASPARTATE AMINO TRANSFERASE 31 U/L (14-36); BILIRUBIN,DIRECT 0.2 mg/dL (0.0-0.4); BILIRUBIN,TOTAL 0.6 mg/dL (0.2-1.3); BLOOD UREA NITROGEN 9 mg/dL (7-20); CALCIUM 9.5 mg/dL (8.4-10.2); CARBON DIOXIDE 25 mmol/L (22-30); CHLORIDE 105 mmol/L (98-107); GLUCOSE 83 mg/dL (75-110); POTASSIUM 4.3 mmol/L (3.6-5.0)
[2019-01-24 21:09] LABS: ABSOLUTE BASOPHILS # (AUTO) 0.1 10^3/uL (0.0-0.2); ABSOLUTE EOSINOPHILS # (AUTO) 0.1 10^3/uL (0.0-0.6); ABSOLUTE LYMPHOCYTES (AUTO) 2.2 10^3/uL (0.5-4.7); ABSOLUTE MONOCYTES (AUTO) 0.5 10^3/uL (0.1-1.4); ABSOLUTE NEUT (AUTO) 5.5 10^3/uL (1.7-8.2); BASOPHILS % (AUTO) 0.8 % (0-2); EOSINOPHILS % (AUTO) 1.2 % (0-6); HEMATOCRIT 47.4 % (36.0-47.0); HEMOGLOBIN 16.1 g/dL (12.0-15.5); LYMPHOCYTES % (AUTO) 25.9 % (13-45); MEAN CORPUSCULAR HEMOGLOBIN 32.5 pg (27.0-33.4); MEAN CORPUSCULAR HGB CONC 34.1 g/dL (32.0-36.0); MEAN CORPUSCULAR VOLUME 95 fl (80-97); MONOCYTES % (AUTO) 5.7 % (3-13); PLATELET COUNT 229 10^3/uL (150-450); RED BLOOD COUNT 4.96 10^6/uL (3.72-5.28); RED CELL DISTRIBUTION WIDTH 15.6 % (11.5-14.0); SEGMENTED NEUTROPHILS % (AUTO) 66.4 % (42-78); TOTAL CELLS COUNTED % (AUTO) 100 %; WHITE BLOOD COUNT 8.3 10^3/uL (4.0-10.5)
--- NOTE | 2019-01-24 22:31 | RADIOLOGY REPORT (SQ) ---
EXAM DESCRIPTION: CT ABDOMEN PELVIS WITH IV CONTRAST COMPLETED DATE/TME: 01/24/2019 20:35 CLINICAL HISTORY: 59 years, Female, epigastric and RUQ pain. This exam was performed according to our departmental dose-optimization program which includes automated exposure control, adjustment of the mA and/or kVp according to patient size and/or use of iterative reconstruction technique where applicable. FINDINGS: Visualized lung bases are within normal limits. Liver, spleen, pancreas, gallbladder, adrenal glands and kidneys are within normal limits. No hydronephrosis or biliary dilatation. No dilated loops of bowel to suggest obstruction. Mild amount of stool in the colon. Appendix is normal. No free fluid or free air. The bladder is unremarkable. Left adnexal 5.5 cm cyst is noted. No free fluid or free air. No abdominal or pelvic lymphadenopathy. Abdominal aorta mildly calcified without aneurysm. IMPRESSION: Left adnexal cyst is noted. No evidence for acute appendicitis.
[2019-01-24 23:42] VITALS: BP 116/74
== END 2019-01-24 23:41 | disposition home or self-care (01) ==
LOC: ER 15:43
DX: R10.10 Upper abdominal pain, unspecified (principal); R07.9 Chest pain, unspecified; R06.02 Shortness of breath; R05 Cough; R10.816 Epigastric abdominal tenderness; R10.811 Right upper quadrant abdominal tenderness; F17.200 Nicotine dependence, unspecified, uncomplicated; Z79.1 Long term (current) use of non-steroidal anti-inflammatories (NSAID)
CPT/HCPCS: 99284; 96374; 36415; 83690; 85025; 80053; 84484; 71046; 74177; J1885